=== PATIENT | male | born 1995 | race Caucasian/White ===

== ENCOUNTER 2021-04-10 13:17 | Emergency (ER) | payer SELFPAY ==
[~2021-04-10] VITALS: Ht 172.7 cm; Wt 59.0 kg
[2021-04-10 13:31] VITALS: BP 141/97
[2021-04-10] MEDS ORDERED: TETRACAINE 0.5% OPHTH DROPS 4ML RIGHTEYE ONE (14:00)
[2021-04-10] MEDS ORDERED: BALANCED SALT IRRIG SOLN 15ML IR ONE (14:00)
[2021-04-10] MEDS ORDERED: FLUORESCEIN SODIUM 1MG/STRIP RIGHTEYE ONE (14:00)
[2021-04-10] MEDS ORDERED: ERYT1OIN6 RIGHTEYE (14:49)
== END 2021-04-10 15:05 | disposition home or self-care (01) ==
LOC: ER 13:17
DX: S05.01XA Injury of conjunctiva and corneal abrasion without foreign body, right eye, initial encounter (principal); X58.XXXA Exposure to other specified factors, initial encounter; Y93.89 Activity, other specified; Y92.89 Other specified places as the place of occurrence of the external cause; Y99.0 Civilian activity done for income or pay
CPT/HCPCS: 99283

== ENCOUNTER → 2021-06-28 | Emergency (ER) | payer SELFPAY ==
[~2021-06-28] VITALS: Ht 177.8 cm; Wt 59.0 kg
[~2021-06-28] MED LIST: ERYT1OIN6 RIGHTEYE
[2021-06-28 01:57] VITALS: BP 121/73
== END ==
LOC: ER 01:52
DX: F10.129 Alcohol abuse with intoxication, unspecified (principal); Y90.9 Presence of alcohol in blood, level not specified
CPT/HCPCS: 99283